=== PATIENT | male | born 1970 | race Caucasian/White ===

== ENCOUNTER 2021-07-06 07:49 | Day surgery (SDC) | payer MEDICARE, MEDICAID ==
[~2021-07-06 07:49] MED LIST: Lactated Ringers 1,000 ML IV SCH; Lidocaine 1% 4 ML ONE; Lidocaine 1%/Sod Bicarbonate in NS 8.4% 1 ML Syringe IDERM PRN; Propofol 200 MG/20 ML SDV ONE; Sodium Chloride 0.9% 10 ML Syringe FLUSH PRN; Sodium Chloride 0.9% 10 ML Syringe FLUSH SCH
[2021-07-06 11:03] VITALS: BP 109/63; PULSE 66
== END 2021-07-06 11:15 | disposition home or self-care (01) ==
LOC: JD.SDS 07:49
PROVIDERS: ATTEND Surgery
DX: K57.31 Diverticulosis of large intestine without perforation or abscess with bleeding (principal); E78.5 Hyperlipidemia, unspecified; I10 Essential (primary) hypertension; E66.9 Obesity, unspecified; F32.A Depression, unspecified; Z68.35 Body mass index [BMI] 35.0-35.9, adult; Z98.890 Other specified postprocedural states; Z79.899 Other long term (current) drug therapy
CPT/HCPCS: 45378; J2704; J7120; 00812

== ENCOUNTER 2022-11-18 14:19 | Emergency (ER) | payer MEDICARE, MEDICAID ==
[2022-11-18 15:29] LABS: BASOPHILS ABSOLUTE AUTO 0.14 K/mm3 (0.01-0.08); BASOPHILS PERCENT AUTO 3.2 % (0.1-1.2); EOSINOPHILS ABSOLUTE AUTO 0.14 K/mm3 (0.04-0.54); EOSINOPHILS PERCENT AUTO 3.2 (0.8-7.0); HEMATOCRIT 41.9 % (40.1-51.0); HEMOGLOBIN 13.9 gm/dl (13.7-17.5); IMMATURE GRAN ABSOLUTE AUTO 0.01 K/mm3 (0.00-0.10); IMMATURE GRAN PERCENT AUTO 0.2 % (<=1.0); LYMPHOCYTES PERCENT AUTO 31.6 % (21.8-53.1); MEAN CORPUSCULAR HGB CONC 33.2 g/dl (32.2-35.5); MEAN CORPUSCULAR VOLUME 93.3 fl (79.0-92.2); MEAN PLATELET VOLUME 9.1 fl (9.4-12.3); MONOCYTES ABSOLUTE AUTO 0.47 K/mm3 (0.30-0.82); MONOCYTES PERCENT AUTO 10.6 % (5.3-12.2); NEUTROPHILS ABSOLUTE AUTO 2.27 K/mm3 (1.78-5.38); NEUTROPHILS PERCENT AUTO 51.2 % (34.0-67.9); PLATELET COUNT,PLT 261 K/mm3 (163-337); RED BLOOD CELL COUNT 4.49 M/mm3 (4.63-6.08); WHITE BLOOD CELL COUNT,WBC 4.43 K/mm3 (4.23-9.07)
[2022-11-18 15:58] LABS: SLIDE REVIEW NORMAL SMEAR
[2022-11-18 16:07] LABS: A/G RATIO 0.7 (1-2); ALANINE AMINOTRANSFERASE,ALT 27 U/L (16-63); ALBUMIN 3.2 g/dl (3.4-5.0); ALKALINE PHOSPHATASE 90 U/L (46-116); ANION GAP 9.9 (5-15); ASPARTATE AMNIOTRANSFERASE,AST 19 U/L (15-37); BILIRUBIN TOTAL 0.2 mg/dL (0.2-1.0); BLOOD UREA NITROGEN,BUN 24 mg/dL (7-18); BUN/CREATININE RATIO 26.7 (14-18); CALCIUM 7.9 mg/dL (8.5-10.1); CARBON DIOXIDE,CO2 29 mEq/L (21-32); CHLORIDE,CL 101 mEq/L (98-107); CREATININE 0.9 mg/dL (0.7-1.3); ESTIMATED GFR 103 mL/min (>60); GLUCOSE RANDOM 95 mg/dL (70-99); POTASSIUM,K 3.9 mEq/L (3.5-5.1); PROTEIN TOTAL,TP 7.5 g/dl (6.4-8.2); SODIUM,NA 136 mEq/L (136-145)
[2022-11-18 16:49] VITALS: BP 121/74; PULSE 78
== END 2022-11-18 16:49 | disposition home or self-care (01) ==
LOC: JD.ED 14:19
DX: R26.89 Other abnormalities of gait and mobility (principal); I10 Essential (primary) hypertension
CPT/HCPCS: 36415; 70450; 70450-26; 80053; 85025; 99282; 99284

== ENCOUNTER 2022-11-23 09:58 | Emergency (ER) | payer MEDICARE, MEDICAID ==
[2022-11-23 17:42] VITALS: BP 129/67; PULSE 87
== END 2022-11-23 13:20 | disposition home or self-care (01) ==
LOC: JD.ED 09:58
DX: S92.414A Nondisplaced fracture of proximal phalanx of right great toe, initial encounter for closed fracture (principal); I10 Essential (primary) hypertension; W01.0XXA Fall on same level from slipping, tripping and stumbling without subsequent striking against object, initial encounter
CPT/HCPCS: 29515; 73562-26-LT; 73562-26-RT; 73562-LT; 73562-RT; 73630-26-RT; 73630-RT; 99283

== ENCOUNTER 2024-05-03 15:25 | Emergency (ER) | payer MEDICARE, MEDICAID ==
[2024-05-03 16:57] LABS: BASOPHILS ABSOLUTE AUTO 0.1 K/mm3 (0.0-0.2); BASOPHILS PERCENT AUTO 2.3 % (0.0-1.0); EOSINOPHILS ABSOLUTE AUTO 0.1 K/mm3 (0.0-0.4); EOSINOPHILS PERCENT AUTO 2.1 % (0.0-6.0); HEMATOCRIT 44.8 % (42.0-52.0); HEMOGLOBIN 14.9 gm/dl (14.0-18.0); IMMATURE GRAN ABSOLUTE AUTO 0.03 K/mm3 (0.00-0.05); IMMATURE GRAN PERCENT AUTO 0.6 % (0.0-0.4); LYMPHOCYTES ABSOLUTE AUTO 1.3 K/mm3 (1.0-4.8); LYMPHOCYTES PERCENT AUTO 23.5 % (24.0-44.0); MEAN CORPUSCULAR HGB CONC 33.3 g/dl (32.0-36.0); MEAN CORPUSCULAR VOLUME 93.1 fl (83.0-99.0); MONOCYTES ABSOLUTE AUTO 0.5 K/mm3 (0.0-0.8); NEUTROPHILS ABSOLUTE AUTO 3.3 K/mm3 (1.8-7.7); NEUTROPHILS PERCENT AUTO 61.5 % (41.0-71.0); PLATELET COUNT,PLT 332 K/mm3 (150-400); RED BLOOD CELL COUNT 4.81 M/mm3 (4.52-5.90); WHITE BLOOD CELL COUNT,WBC 5.32 K/mm3 (3.9-11.3)
[2024-05-03 17:28] LABS: A/G RATIO 0.7 (1-2); ALANINE AMINOTRANSFERASE,ALT 29 U/L (16-63); ALBUMIN 3.4 g/dl (3.4-5.0); ALKALINE PHOSPHATASE 96 U/L (46-116); ANION GAP 10.6 (5-15); ASPARTATE AMNIOTRANSFERASE,AST 20 U/L (15-37); BILIRUBIN TOTAL 0.3 mg/dL (0.2-1.0); BLOOD UREA NITROGEN,BUN 26 mg/dL (7-18); BUN/CREATININE RATIO 28.9 (14-18); CALCIUM 8.6 mg/dL (8.5-10.1); CARBON DIOXIDE,CO2 29 mEq/L (21-32); CHLORIDE,CL 102 mEq/L (98-107); CREATININE 0.9 mg/dL (0.7-1.3); ESTIMATED GFR 102 mL/min (>60); GLUCOSE RANDOM 99 mg/dL (70-99); MAGNESIUM 2.3 mg/dL (1.8-2.4); POTASSIUM,K 3.6 mEq/L (3.5-5.1); SODIUM,NA 138 mEq/L (136-145); TROPONIN I HIGH SENSITIVITY 9 pg/mL (<=76)
[2024-05-03 18:15] VITALS: BP 103/76; PULSE 88
== END 2024-05-03 18:08 | disposition home or self-care (01) ==
LOC: JD.ED 15:25
DX: R42 Dizziness and giddiness (principal); I10 Essential (primary) hypertension; Z88.8 Allergy status to other drugs, medicaments and biological substances; Z79.899 Other long term (current) drug therapy
CPT/HCPCS: 36415; 71045; 71045-26; 80053; 83735; 83880; 84484; 85025; 93005; 93010; 99284; 99285

== ENCOUNTER 2024-12-10 10:39 | Emergency (ER) | payer MEDICARE, MEDICAID ==
[2024-12-10 11:35] LABS: APPEARANCE,URINE CLEAR (Clear); GLUCOSE,URINE NEGATIVE (Negative); OCCULT BLOOD,URINE NEGATIVE (Negative)
[2024-12-10] MEDS: Furosemide 40 MG/4 ML VIAL IVPUSH ONE (11:46)
[2024-12-10 12:10] LABS: BASOPHILS ABSOLUTE AUTO 0.1 K/mm3 (0.0-0.2); BASOPHILS PERCENT AUTO 2.5 % (0.0-1.0); EOSINOPHILS ABSOLUTE AUTO 0.2 K/mm3 (0.0-0.4); EOSINOPHILS PERCENT AUTO 3.7 % (0.0-6.0); IMMATURE GRAN ABSOLUTE AUTO 0.06 K/mm3 (0.00-0.05); IMMATURE GRAN PERCENT AUTO 1.4 % (0.0-0.4); LYMPHOCYTES ABSOLUTE AUTO 1.0 K/mm3 (1.0-4.8); LYMPHOCYTES PERCENT AUTO 23.8 % (24.0-44.0); MEAN PLATELET VOLUME 9.4 fl (9.4-12.4); MONOCYTES ABSOLUTE AUTO 0.4 K/mm3 (0.0-0.8); MONOCYTES PERCENT AUTO 9.3 % (0.0-8.0); NEUTROPHILS ABSOLUTE AUTO 2.6 K/mm3 (1.8-7.7); NEUTROPHILS PERCENT AUTO 59.3 % (41.0-71.0); NRBC ABSOLUTE 0.00 (0.00-0.02); NRBC PERCENT 0.0 % (0.0-0.2); PLATELET COUNT,PLT 303 K/mm3 (150-400); RED BLOOD CELL COUNT 4.57 M/mm3 (4.52-5.90); WHITE BLOOD CELL COUNT,WBC 4.32 K/mm3 (3.9-11.3)
[2024-12-10 12:21] LABS: A/G RATIO 0.6 (1-2); ALANINE AMINOTRANSFERASE,ALT 27 U/L (16-63); ASPARTATE AMNIOTRANSFERASE,AST 20 U/L (15-37); BILIRUBIN TOTAL 0.2 mg/dL (0.2-1.0); BLOOD UREA NITROGEN,BUN 23 mg/dL (7-18); CARBON DIOXIDE,CO2 33 mEq/L (21-32); CHLORIDE,CL 99 mEq/L (98-107); CREATININE 0.8 mg/dL (0.7-1.3); ESTIMATED GFR 106 mL/min (>60); GLUCOSE RANDOM 122 mg/dL (70-99); POTASSIUM,K 3.6 mEq/L (3.5-5.1); PROTEIN TOTAL,TP 8.2 g/dl (6.4-8.2); SODIUM,NA 138 mEq/L (136-145)
[2024-12-10 16:49] VITALS: BP 135/72; PULSE 82
== END 2024-12-10 14:08 | disposition home or self-care (01) ==
LOC: JD.ED 10:39
DX: E87.70 Fluid overload, unspecified (principal); E63.9 Nutritional deficiency, unspecified; I10 Essential (primary) hypertension; Z88.8 Allergy status to other drugs, medicaments and biological substances; Z79.899 Other long term (current) drug therapy
CPT/HCPCS: 36415; 80053; 81003; 83735; 85025; 96374; 99284; J1938

== ENCOUNTER 2025-04-05 11:16 | Inpatient (IN) | payer MEDICARE, MEDICAID ==
[2025-04-05] MEDS ORDERED: Sodium Chloride 0.9% 10 ML Syringe FLUSH PRN (11:52)
[2025-04-05 12:04] LABS: BASOPHILS ABSOLUTE AUTO 0.1 K/mm3 (0.0-0.2); BASOPHILS PERCENT AUTO 0.7 % (0.0-1.0); EOSINOPHILS ABSOLUTE AUTO 0.3 K/mm3 (0.0-0.4); EOSINOPHILS PERCENT AUTO 2.5 % (0.0-6.0); IMMATURE GRAN ABSOLUTE AUTO 0.06 K/mm3 (0.00-0.05); IMMATURE GRAN PERCENT AUTO 0.4 % (0.0-0.4); LYMPHOCYTES ABSOLUTE AUTO 0.8 K/mm3 (1.0-4.8); LYMPHOCYTES PERCENT AUTO 6.1 % (24.0-44.0); MEAN PLATELET VOLUME 9.5 fl (9.4-12.4); MONOCYTES ABSOLUTE AUTO 0.4 K/mm3 (0.0-0.8); MONOCYTES PERCENT AUTO 2.6 % (0.0-8.0); NEUTROPHILS ABSOLUTE AUTO 12.0 K/mm3 (1.8-7.7); NEUTROPHILS PERCENT AUTO 87.7 % (41.0-71.0); NRBC ABSOLUTE 0.00 (0.00-0.02); NRBC PERCENT 0.0 % (0.0-0.2); PLATELET COUNT,PLT 275 K/mm3 (150-400); RED BLOOD CELL COUNT 4.42 M/mm3 (4.52-5.90); WHITE BLOOD CELL COUNT,WBC 13.74 K/mm3 (3.9-11.3)
[2025-04-05 12:37] LABS: A/G RATIO 0.6 (1-2); ALANINE AMINOTRANSFERASE,ALT 20 U/L (16-63); ASPARTATE AMNIOTRANSFERASE,AST 20 U/L (15-37); BILIRUBIN TOTAL 0.5 mg/dL (0.2-1.0); BLOOD UREA NITROGEN,BUN 41 mg/dL (7-18); CARBON DIOXIDE,CO2 31 mEq/L (21-32); CHLORIDE,CL 100 mEq/L (98-107); CREATININE 1.0 mg/dL (0.7-1.3); ESTIMATED GFR 89 mL/min (>60); GLUCOSE RANDOM 125 mg/dL (70-99); POTASSIUM,K 3.0 mEq/L (3.5-5.1); PROTEIN TOTAL,TP 7.5 g/dl (6.4-8.2); SODIUM,NA 140 mEq/L (136-145); TROPONIN I HIGH SENSITIVITY 33 pg/mL (<=76)
[2025-04-05] MEDS: Furosemide 40 MG/4 ML VIAL IVPUSH ONE (12:51)
[2025-04-05] MEDS ORDERED: Ondansetron 4 MG/2 ML SDV IVPUSH PRN (14:45)
[2025-04-05] MEDS: cefTRIAXone 2 GM in Water For Injection, Sterile 20 ML IVPUSH SCH (16:38)
[2025-04-06 05:46] LABS: BASOPHILS ABSOLUTE AUTO 0.1 K/mm3 (0.0-0.2); BASOPHILS PERCENT AUTO 0.8 % (0.0-1.0); EOSINOPHILS ABSOLUTE AUTO 0.3 K/mm3 (0.0-0.4); EOSINOPHILS PERCENT AUTO 3.7 % (0.0-6.0); IMMATURE GRAN ABSOLUTE AUTO 0.04 K/mm3 (0.00-0.05); IMMATURE GRAN PERCENT AUTO 0.4 % (0.0-0.4); LYMPHOCYTES ABSOLUTE AUTO 1.1 K/mm3 (1.0-4.8); LYMPHOCYTES PERCENT AUTO 12.2 % (24.0-44.0); MEAN PLATELET VOLUME 9.6 fl (9.4-12.4); MONOCYTES ABSOLUTE AUTO 0.6 K/mm3 (0.0-0.8); MONOCYTES PERCENT AUTO 6.7 % (0.0-8.0); NEUTROPHILS ABSOLUTE AUTO 7.0 K/mm3 (1.8-7.7); NEUTROPHILS PERCENT AUTO 76.2 % (41.0-71.0); NRBC ABSOLUTE 0.00 (0.00-0.02); NRBC PERCENT 0.0 % (0.0-0.2); PLATELET COUNT,PLT 260 K/mm3 (150-400); RED BLOOD CELL COUNT 4.09 M/mm3 (4.52-5.90); WHITE BLOOD CELL COUNT,WBC 9.24 K/mm3 (3.9-11.3)
[2025-04-06 07:13] LABS: A/G RATIO 0.5 (1-2); ALANINE AMINOTRANSFERASE,ALT 14.0 U/L (16-63); ASPARTATE AMNIOTRANSFERASE,AST 16.0 U/L (15-37); BILIRUBIN TOTAL 0.3 mg/dL (0.2-1.0); BLOOD UREA NITROGEN,BUN 24.0 mg/dL (7-18); CARBON DIOXIDE,CO2 35.0 mEq/L (21-32); CHLORIDE,CL 101.0 mEq/L (98-107); CREATININE 0.8 mg/dL (0.7-1.3); EST CRCL DRUG DOSING (CG) 95.26 mL/min; ESTIMATED GFR 105.0 mL/min (>60); GLUCOSE RANDOM 105.0 mg/dL (70-99); POTASSIUM,K 3.0 mEq/L (3.5-5.1); PROTEIN TOTAL,TP 7.0 g/dl (6.4-8.2); SODIUM,NA 140.0 mEq/L (136-145)
[2025-04-06] MEDS: Potassium Chloride 20 MEQ Tab.ER PO ONE (07:33)
[2025-04-06] MEDS: Venlafaxine 75 MG Cap.ER PO SCH (08:13)
[2025-04-07 08:22] LABS: BLOOD UREA NITROGEN,BUN 15.0 mg/dL (7-18); CARBON DIOXIDE,CO2 34.0 mEq/L (21-32); CHLORIDE,CL 101.0 mEq/L (98-107); CREATININE 0.9 mg/dL (0.7-1.3); EST CRCL DRUG DOSING (CG) 84.67 mL/min; ESTIMATED GFR 101.0 mL/min (>60); GLUCOSE RANDOM 139.0 mg/dL (70-99); POTASSIUM,K 3.6 mEq/L (3.5-5.1); SODIUM,NA 140.0 mEq/L (136-145)
[2025-04-08 08:18] LABS: BLOOD UREA NITROGEN,BUN 13.0 mg/dL (7-18); CARBON DIOXIDE,CO2 36.0 mEq/L (21-32); CHLORIDE,CL 100.0 mEq/L (98-107); CREATININE 0.8 mg/dL (0.7-1.3); EST CRCL DRUG DOSING (CG) 95.26 mL/min; ESTIMATED GFR 105.0 mL/min (>60); GLUCOSE RANDOM 106.0 mg/dL (70-99); POTASSIUM,K 3.7 mEq/L (3.5-5.1); SODIUM,NA 139.0 mEq/L (136-145)
[2025-04-08] MEDS: FLU (Flulaval) 25-26(6MOS UP)/PF 45 MCG/0.5 ML Syringe IM ONE (12:51)
[2025-04-08] MEDS: FOLIC ACID 0.4 MG PO SCH (23:58)
[2025-04-10 09:47] LABS: BASOPHILS ABSOLUTE AUTO 0.2 K/mm3 (0.0-0.2); BASOPHILS PERCENT AUTO 1.9 % (0.0-1.0); EOSINOPHILS ABSOLUTE AUTO 0.2 K/mm3 (0.0-0.4); EOSINOPHILS PERCENT AUTO 2.7 % (0.0-6.0); IMMATURE GRAN ABSOLUTE AUTO 0.11 K/mm3 (0.00-0.05); IMMATURE GRAN PERCENT AUTO 1.3 % (0.0-0.4); LYMPHOCYTES ABSOLUTE AUTO 0.9 K/mm3 (1.0-4.8); LYMPHOCYTES PERCENT AUTO 10.3 % (24.0-44.0); MEAN PLATELET VOLUME 9.3 fl (9.4-12.4); MONOCYTES ABSOLUTE AUTO 0.7 K/mm3 (0.0-0.8); MONOCYTES PERCENT AUTO 8.5 % (0.0-8.0); NEUTROPHILS ABSOLUTE AUTO 6.3 K/mm3 (1.8-7.7); NEUTROPHILS PERCENT AUTO 75.3 % (41.0-71.0); NRBC ABSOLUTE 0.00 (0.00-0.02); NRBC PERCENT 0.0 % (0.0-0.2); PLATELET COUNT,PLT 306 K/mm3 (150-400); RED BLOOD CELL COUNT 4.52 M/mm3 (4.52-5.90); WHITE BLOOD CELL COUNT,WBC 8.38 K/mm3 (3.9-11.3)
[2025-04-10 10:23] LABS: BLOOD UREA NITROGEN,BUN 17.0 mg/dL (7-18); CARBON DIOXIDE,CO2 34.0 mEq/L (21-32); CHLORIDE,CL 100.0 mEq/L (98-107); CREATININE 0.8 mg/dL (0.7-1.3); EST CRCL DRUG DOSING (CG) 95.26 mL/min; ESTIMATED GFR 105.0 mL/min (>60); GLUCOSE RANDOM 108.0 mg/dL (70-99); POTASSIUM,K 3.8 mEq/L (3.5-5.1); SODIUM,NA 140.0 mEq/L (136-145)
[2025-04-16 09:33] VITALS: BP 130/65
[2025-04-16 10:34] VITALS: PULSE 73
== END 2025-04-16 09:58 | DRG 871 ==
LOC: JD.ED 11:16 → JD.MS 14:45
PROVIDERS: ADMIT Family Medicine; ATTEND Family Medicine
DX: A41.9 Sepsis, unspecified organism (principal); J18.8 Other pneumonia, unspecified organism; J96.01 Acute respiratory failure with hypoxia; H54.7 Unspecified visual loss; F32.A Depression, unspecified; E78.5 Hyperlipidemia, unspecified; F41.9 Anxiety disorder, unspecified; I11.0 Hypertensive heart disease with heart failure; I50.9 Heart failure, unspecified; Q90.9 Down syndrome, unspecified; R91.8 Other nonspecific abnormal finding of lung field; M17.11 Unilateral primary osteoarthritis, right knee; G47.33 Obstructive sleep apnea (adult) (pediatric); J81.0 Acute pulmonary edema; Z98.49 Cataract extraction status, unspecified eye; Z98.890 Other specified postprocedural states; I10 Essential (primary) hypertension; Z79.899 Other long term (current) drug therapy; Z88.8 Allergy status to other drugs, medicaments and biological substances
CPT/HCPCS: 36415; 71045; 71250; 80053; 83605; 83880; 84484; 85025; 93005; 96365; 96375; 99285; J1938; J3360; J3480; J7030; 80048; 83735; 87040; 87641; 93010; 94667; 94668; 94760; 94761; 97110-GP; 97112-GP; 97116-GP; 97162-GP; 97165-GO; 97530-GO; 97530-GP; 97535-GO; 99222; 99231; 99232; 99239; A4216; A9270-GY; J0696; J1271; J1650